=== PATIENT | female | born 1980 | race African-American/Black ===

== ENCOUNTER 2019-09-21 08:07 | Emergency (ER) | payer BC, SELFPAY ==
[2019-09-21 08:29] VITALS: BP 105/71; PULSE 75; RESP 16; TEMP 37.2; O2SAT 97
--- NOTE | 2019-09-21 08:49 | ED.URI ---
HPI - URI/Sore Throat General Chief Complaint: Upper Respiratory Infection Stated Complaint: Sore Throat/Stuffy Nose/Ear Time Seen by Provider: 09/21/19 08:33 Source: patient and RN notes reviewed Mode of arrival: ambulatory Limitations: no limitations History of Present Illness HPI Narrative: Patient presents today with a 4-day history of nasal congestion, sore throat, bilateral ear pain and pressure. Denies fever, cough, headache, nausea or vomiting. She has tried no medication for symptoms prior to arrival. Denies history of asthma or COPD. She does not smoke or vape. MD elicited complaint: nasal congestion Related Data Home Medications Medication Instructions Recorded Confirmed No Home Medications 09/21/19 09/21/19 Allergies Allergy/AdvReac Type Severity Reaction Status Date / Time CIPROFLOXACIN HCL Allergy Intermediate Hives Uncoded 09/21/19 08:32 Review of Systems Review of Systems: Narrative: CONSTITUTIONAL: Denies body aches, fever, chills, or sweats. EYES: Denies visual changes, redness, or discharge. ENT: Denies rhinorrhea. + Nasal congestion, sore throat, bilateral ear pain and pressure CARDIOVASCULAR: Denies chest pain, palpitations, or edema. RESPIRATORY: Denies cough or dyspnea. GASTROINTESTINAL: Denies abdominal pain, nausea, vomiting, or diarrhea. GENITOURINARY: Denies dysuria or hematuria. SKIN: Denies rash, itching, or wounds. MUSCULOSKELETAL: Denies back pain, joint pain, or myalgia. NEUROLOGIC: Denies headache, numbness, tingling, or weakness. PSYCH: Denies depression or anxiety. PMFSH Comments At time of signature, I have reviewed and agree with nursing past medical, surgical, social and family history unless otherwise noted. Please see nursing chart for further information. There is no relevant family history pertinent to the presenting complaint Exam Narrative: Exam Narrative: GENERAL: Well-appearing, well-nourished, and in no acute distress. HEAD: Normocephalic, atraumatic. EYES: EOMI. No redness or drainage. Conjunctivae normal. ENT: Mucous membranes pink and moist. Nares clear. No rhinorrhea. TMs normal bilaterally. Mild bilateral middle ear effusions. Throat normal. Uvula midline. NECK: Normal AROM. Supple. No lymphadenopathy. CHEST: No respiratory distress. Clear to auscultation. HEART: Regular rate and rhythm. No murmur appreciated. Normal peripheral pulses. EXTREMITIES: Normal range of motion. No edema. SKIN: Warm, dry, no rash. NEURO: No focal deficits. Alert and oriented x3. Gait steady. PSYCH: Normal affect. No signs of depression or anxiety. Course Vital Signs Vital signs: Vital Signs Temperature 99.0 F 09/21/19 08:29 Pulse Rate 75 09/21/19 08:29 Respiratory Rate 16 09/21/19 08:29 Blood Pressure 105/71 09/21/19 08:29 Pulse Oximetry 97 09/21/19 08:29 Temperature 99.0 F 09/21/19 08:29 Pulse Rate 75 09/21/19 08:29 Respiratory Rate 16 09/21/19 08:29 Blood Pressure 105/71 09/21/19 08:29 Pulse Oximetry 97 09/21/19 08:29 Reviewed. Pt has been instructed to follow up with her PCP regarding her elevated blood pressure today. MDM - URI/Sore Throat Differential Diagnosis Differential diagnosis: Likely upper respiratory infection, otitis media, sinusitis, viral infection and pharyngitis Lab Data Attestation: I reviewed the patient's lab results. Labs: Influenza A Screen Negative Reference Range: Negative Influenza B Screen Negative Reference Range: Negative Critical Care Time Critical Care Time Critical Care Time: No Discharge Plan Discharge Clinical Impression: Upper respiratory infection Qualifiers: URI type: unspecified URI Qualified Code(s): J06.9 - Acute upper respiratory infection, unspecified Patient Disposition: Home, Self-Care Condition: Stable Instructions: Upper Respiratory Infection (DC), Serous Otitis Media (ED) Additional Instructions: Your influenz
== END 2019-09-21 08:53 | disposition home or self-care (01) ==
PROVIDERS: Emergency Provider Nurse Practitioner
DX: J06.9 Acute upper respiratory infection, unspecified (principal)
CPT/HCPCS: 87804; 99213; G0463

== ENCOUNTER 2021-07-22 16:53 | Emergency (ER) | payer BC, SELFPAY ==
--- NOTE | 2021-07-22 16:59 | ED.EAR ---
HPI - Ear Problem General Chief complaint: Ear Stated complaint: Ear Pain Time Seen by Provider: 07/22/21 16:59 Source: patient and RN notes reviewed Mode of arrival: ambulatory Limitations: no limitations History of Present Illness HPI Narrative: Candi 41-year-old female patient ambulated into the [facility]. Patient complains of right ear pain. Patient states she flew 7 days ago and pain started immediately after. Patient started having pain with chewing or touching the right side two days ago. Patient rates pain 8/10. MD Complaint: ear pain Related Data Allergies Allergy/AdvReac Type Severity Reaction Status Date / Time CIPROFLOXACIN HCL Allergy Intermediate Hives Uncoded 07/22/21 16:58 Review of Systems Review of Systems: CONSTITUTIONAL: Denies body aches, fever, chills, or sweats. EYES: Denies visual changes, redness, or discharge. ENT: Denies rhinorrhea, congestion, sore throat, + right otalgia. CARDIOVASCULAR: Denies chest pain, palpitations, or edema. RESPIRATORY: Denies cough or dyspnea. GASTROINTESTINAL: Denies abdominal pain, nausea, vomiting, or diarrhea. GENITOURINARY: Denies dysuria or hematuria. SKIN: Denies rash, itching, or wounds. MUSCULOSKELETAL: Denies back pain, joint pain, or myalgia. NEUROLOGIC: Denies headache, numbness, tingling, or weakness. PSYCH: Denies depression or anxiety. All systems reviewed & are unremarkable except as noted in HPI and below PMFSH Comments At time of signature, I have reviewed and agree with nursing past medical, surgical, social and family history unless otherwise noted. Please see nursing chart for further information. There is no relevant family history pertinent to the presenting complaint Exam Narrative: GENERAL: Well-appearing, well-nourished, and in no acute distress. HEAD: Normocephalic, atraumatic. EYES: EOMI. No redness or drainage. Conjunctivae normal. ENT: Mucous membranes pink and moist. Nares clear. No rhinorrhea. Right ear canal is erythemic and edematous. Right tympanic membrane is bulging with minimal erythema. Left tympanic membrane and ear canal are normal Uvula midline. NECK: Normal AROM. Supple. No lymphadenopathy. CHEST: No respiratory distress. Clear to auscultation. ABDOMEN: Soft, nontender, nondistended, normal active bowel sounds. MUSCULOSKELETAL: No bony tenderness. EXTREMITIES: Normal range of motion. No edema. SKIN: Warm, dry, no rash. Capillary refill normal. Normal skin turgor. NEURO: No focal deficits. Alert and oriented x3. Gait steady. PSYCH: Normal affect. No signs of depression or anxiety. Course Vital Signs Vital signs: Vital Signs Temperature 36.4 C 07/22/21 17:02 Pulse Rate 81 07/22/21 17:02 Respiratory Rate 16 07/22/21 17:02 Blood Pressure 132/79 07/22/21 17:02 Pulse Oximetry 98 07/22/21 17:02 Temperature 36.4 C 07/22/21 17:02 Pulse Rate 81 07/22/21 17:02 Respiratory Rate 16 07/22/21 17:02 Blood Pressure 132/79 07/22/21 17:02 Pulse Oximetry 98 07/22/21 17:02 Reviewed. Pt has been instructed to follow up with her PCP regarding her elevated blood pressure today. Medical Decision Making MDM Narrative Medical decision making narrative: Patient was diagnosed with otitis externa. Right ear canal is erythematous and edematous. Differential Diagnosis Differential Diagnosis: Otitis media, otitis externa, eustachian tube dysfunction Medical Records Medical records reviewed: Yes I reviewed the external patient's medical records. Vital Signs Vital Signs: Vital Signs Temperature 36.4 C 07/22/21 17:02 Pulse Rate 81 07/22/21 17:02 Respiratory Rate 16 07/22/21 17:02 Blood Pressure 132/79 07/22/21 17:02 Pulse Oximetry 98 07/22/21 17:02 Temperature 36.4 C 07/22/21 17:02 Pulse Rate 81 07/22/21 17:02 Respiratory Rate 16 07/22/21 17:02 Blood Pressure 132/79 07/22/21 17:02 Pulse Oximetry 98 07/22/21 17:02 Lab Data Lab results reviewed: Jesus
[2021-07-22 17:02] VITALS: BP 132/79; PULSE 81; RESP 16; TEMP 36.4; O2SAT 98
== END 2021-07-22 17:20 | disposition home or self-care (01) ==
PROVIDERS: Emergency Provider Nurse Practitioner Family
DX: H60.91 Unspecified otitis externa, right ear (principal)
CPT/HCPCS: 99213; G0463